=== PATIENT | female | born 2000 | race Caucasian/White ===

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

== ENCOUNTER 2019-04-07 18:38 | Emergency (ER) | payer BC, OTHER ==
--- OUTSIDE RECORDS SUMMARY | 2019-04-07 18:49 | XMS REPORT | Continuity of Care Document ---
:2000 External Reference #:[id number] Author Name Xiomara Calderon MD Address [address] [place] [address] Care Team Providers Name Role Phone Xiomara Calderon MD - Pediatrics Care Team Information Certified Surgical Tech/First Assistant [phone] Problems Description No Active Problems Social History Type Date Description Comments Sex Unknown Tobacco Use Start: Unknown Patient has never smoked Tobacco Use Start: Unknown No Exposure To Secondhand Smoke Smoking Status Reviewed: 03/07/19 No Exposure To Secondhand Smoke Allergies, Adverse Reactions, Alerts Description No Known Drug Allergies Medications Description No Active Medications Medications Administered in Office Medication SIG Qnty Indications Ordering Provider Date Immunization Administration Minoo Holt M.D. 12/30/2017 Single Or Combination Injection Immunization Administration Minoo Holt M.D. 12/10/2017 Single Or Combination Injection Immunization Administration Minoo Holt M.D. 11/12/2016 Single Or Combination Injection Immunization Adminstration 2+ Nursing 10/28/2016 Single Or Combination Injection Immunization Administration Nursing 10/28/2016 Single Or Combination Injection Immunization Administration Minoo Holt M.D. 09/26/2014 Single Or Combination Injection Immunizations CPT Code Status Date Vaccine Lot # [id number] Given 12/30/2017 Meningococcal B Vaccine [id number] 13104 Given 12/10/2017 Flu Quadrivalent [id number] 22954 Given 11/12/2016 Meningococcal B Vaccine [id number] 86023 Given 10/28/2016 Meningococcal Conjugate Vaccine (Menveo) [id number] 25228 Given 10/28/2016 Flu Quadrivalent [id number] 13849 Given 09/26/2014 Meningococcal Vaccine (Any Groups) For [id number] Subcutaneous Use 43034 Given 03/30/2013 Influenza Virus Vaccine, Split Virus, 6-35 Months Age Intramuscul 53776 Given 01/30/2012 Influenza Virus Vaccine, Split Virus, 6-35 Months Age Intramuscul 84001 Given 08/27/2011 Varicella (Chicken Pox) Vaccine 37141 Given 01/27/2011 Gardasil 53431 Given 09/24/2010 Gardasil 37125 Given 07/22/2010 Gardasil 31485 Given 07/22/2010 Tdap 77711 Given 12/14/2009 Influenza Virus Vaccine Intranasal 48947 Given 11/02/2008 Influenza Virus Vaccine, Split Virus, 6-35 Months Age Intramuscul 37238 Given 06/15/2008 Hepatitis A Pediatric 77082 Given 12/21/2007 Influenza Virus Vaccine, Split Virus, 6-35 Months Age Intramuscul 51675 Given 06/03/2007 Menactra 98550 Given 06/03/2007 Hepatitis A Pediatric 32349 Given 12/24/2006 Influenza Virus Vaccine, Split Virus, 6-35 Months Age Intramuscul 37461 Given 01/14/2006 Influenza Virus Vaccine, Split Virus, 6-35 Months Age Intramuscul 75140 Given 02/13/2005 Influenza Virus Vaccine Intranasal 20527 Given 12/18/2004 Influenza Virus Vaccine Intranasal 26579 Given 04/15/2004 Hib Vaccine 14814 Given 04/15/2004 DTaP Vaccine Younger Than 7 63299 Given 04/15/2004 MMR Vaccine, Live, For Subcutaneous Use 39317 Given 04/15/2004 Polio Injectable 23417 Given 10/27/2000 DTaP Vaccine Younger Than 7 43650 Given 10/27/2000 Prevnar 13 55478 Given 09/17/2000 Varicella (Chicken Pox) Vaccine 16803 Given 09/17/2000 Hib Vaccine 48018 Given 06/04/2000 Polio Injectable 83819 Given 06/04/2000 MMR Vaccine, Live, For Subcutaneous Use 66715 Given 03/03/2000 Prevnar 13 96405 Given 1999 Hib Vaccine 56975 Given 1999 Prevnar 13 36151 Given 1999 DTaP Vaccine Younger Than 7 48347 Given 1999 Hepatitis B Vaccine Pediatric/Adolescent 95880 Given 1999 Polio Injectable 25666 Given 1999 DTaP Vaccine Younger Than 7 75096 Given 1999 Prevnar 13 33117 Given 1999 Hib Vaccine 68391 Given 1999 Polio Injectable 46380 Given 1999 DTaP Vaccine Younger Than 7 33149 Given 1999 Hib Vaccine 79692 Given 1999 Hepatitis B Vaccine Pediatric/Adolescent 43791 Given 1999 Hepatitis B Vaccine Pediatric/Adolescent Vital Signs Date Vital Result Comment 03/07/2019 8:33am Body Temperature 100.9 F Heart Rate 93 /min Respiratory Rate 12 /min BP Systolic 108 mmHg BP Diastolic 66 mmHg Weight 148.31 lb Weight 67.275 kg Height 68.75 inches 5'8.75" BMI (Body Mass Index) 22.1 kg/m2 Body Mass Index Percentile 54 % Height Percentile 96 % Weight Percentile 79th 05/31/2018 8:57am Body Temperature 98.4 F Heart Rate 84 /min Respiratory Rate 12 /min BP Systolic 116 mmHg BP Diastolic 73 mmHg Weight 160.50 lb Weight 72.803 kg Height 68.75 inches 5'8.75" BMI (Body Mass Index) 23.9 kg/m2 Body Mass Index Percentile 73 % Height Percentile 96 % Weight Percentile 89th Results Test Acquired Date Facility Test Result H/L Range Note Laboratory test 03/07/2019 [facility] .Quick neg finding [facility] [place] [address] [phone] Laboratory test 03/07/2019 [facility] .Quick Flu Positive B finding [facility] [place] [address] [phone] Procedures Date Code Description Status 03/07/2019 16510 Brief Emotional/Behav Assessment W/ Scoring Doc Per Completed Standard Inst Medical Devices Description No Information Available Encounters Type Date Location Provider Dx Diagnosis Office Visit 03/07/2019 [facility] Xiomara Calderon, Z00.00 Encntr for general 8:15a adult medical exam w/o abnormal findings J10.89 Influenza due to oth ident influenza virus w oth manifest N63.13 Unspecified lump in the right breast, lower outer quadrant Assessments Date Code Description Provider 03/07/2019 Z00.00 Encounter for general adult medical Xiomara Calderon MD examination without abnormal findings 03/07/2019 J10.89 Influenza due to other identified influenza Xiomara Calderon MD virus with other manifestations 03/07/2019 N63.13 Unspecified lump in the right breast, lower Xiomara Calderon MD outer quadrant Plan of Treatment 03/07/2019 - Xiomara Calderon MDZ00.00 Encounter for general adult medical examination without abnormal findingsFollow up:One year for routine check upJ10.89 Influenza due to other identified influenza virus with other manifestationsComments:Symptomatic care with plenty of fluids, pain relief with acetaminophen or ibuprofen, restCall for recheck if fever lasts more than 5 days , acting more ill or lethargic, new or worse symptoms develop, respiratory difficulty.N63.13 Unspecified lump in the right breast, lower outer quadrantNew Xrays:Ultrasound Breast Right, Ordered: 03/07/19 Goals 03/07/2019 - AMINA Solares00.00 Encounter for general adult medical examination without abnormal findings Nutrition - Choose a variety of healthy foods, especially with calcium and iron. Limit fast foods and foods with trans- fats or high fructose corn syrup. - Don't skip meals and always eat breakfast.Skipping meals may lead to overeating when you get really hungry. Try not to eat after 9 pm. - Drinkplenty of water - Balance the calories you eat by doing a physical activity for at least 1 hour daily. Sleep - Get at least 8 hours nightly and try to stay on a consistent schedule. Even on weekends. Hygiene - [place] your teeth at least twice a day. Remember to floss. - See your dentist at least twicea year. Every day - Be proud of your efforts and accomplishments. Healthy Choices - Most smokers started smoking in their teens. Cigarette smoking is an addiction that leads to cancer, heart disease and chronic illness. If you smoke set a quit date and stop. Ask us if you need help quitting. - Drinking is a huge problem on college campuses, especially binge drinking (5 or more drinks consumed in ashort time.) Binge drinking can lead to disinhibition, poor judgement, sexual aggressiveness, unwanted and/or unsafe sex. This in turn may lead to STI's and unplanned . Increasingly, it can lead to legal action as well. If you use drugs or alcohol, especially if you feel out of control, talk to us about it. We can help you with quitting or cutting down. - Try to find ways to have fun thatdo not involve alcohol or drugs. - Make healthy decisions about your sexual behavior. If you choose to be sexually active, always practice safe sex. Always use a condom to prevent STI's. Ask us about control and emergency contraceptives. - Sex should ALWAYS be consensual and wanted. No one should ever feel forced or coerced. - Continue to explore your interests through activities at school, work and in the community. Stay Safe - Do not drink and drive or ride in a vehicle with someone who has been using drugs or alcohol. - If you feel unsafe driving or riding with someone, call someone you trust to drive you. If this is a parent, contract with them to provide this without fear of punishment. - Always wear a seatbelt. - Night driving is very difficult for new drivers. Most accidentshappen between 9 PM and [address] if you are sleepy. This can be as dangerous as driving drunk. - Follow the posted speed limit. The faster you go the less control you have over your car. More than a third of teen driving deaths involve speeding. - Avoid distractions like texting or talking onyour cell phone. This can make it much more likely that you will have an accident. Keep both hands on the steering wheel. Eating, changing a playlist or CD, or putting on makeup are other things that you shouldn't do while driving. Taking a minute to well puller when you need to do these things could save your life and the lives of others. - Keep control of your emotions when you are driving. If you get upset or angry when driving, well puller to the side of the road until you feel calmer. - Never tolerate physical harm of yourself or others at home or at school. - Resolve conflict nonviolently - Remember that healthy relationships are built on mutual respect and regard. Physical Safety - Avoid sunburn by using sunscreen whenever you are outdoors in the daytime. Choose a sunscreen with a sun protection factor (SPF) of 15 or higher. It should protect against UVA and UVB rays. Don't use sunlamps or tanning booths. - Wear a helmet or protective gear and follow safety rules when you play sports or do high-risk activities, such as rock climbing, skiing, cycling, and snowboarding. Never bike, ski, rollerblade, or skateboard out of control. Stay within your comfort level. Don't take unnecessary risks. -Wear eye protection if you are around dust, flying objects, intense light, or chemicals that could get into your eye. Wear safety gear if you play paintball, racquetball, lacrosse, hockey, or fast-pitch softball. - Use ear protectors when you are in a loud environment. Noise levels at concerts, where music is often louder than 120 decibels, can damage your ears in 10 minutes. [place] and stadium sporting events and car racing can be just as loud. Your Feelings - Figure out healthy ways to deal with stress. -Try your best to solve problems and make decisions on your own. - Most people have daily ups and owns. But if you are feeling sad, depressed, nervous, irritable, hopeless, or angry, talk with us,or another health professional. - We understand that sexuality is an important part of your development. Developing a sexual identity can be confusing. If you have any concerns, ask. School and Friends - Take responsibility for being organized enough to succeed at work or school. - Consider volunteering - Explore new interests - As you get older, making and keeping friends is important. You may find that you drift away from old friends - that's normal. - Evaluate your friendships and keep those that are healthy - It is still important to stay connected to your family. Immunizations -Immunizations protect you against several serious, life-threatening diseases. You should get a flu shot every year and a tetanus booster every ten years. If you travel overseas you may need additional immunizations as well as screening for tuberculosis on your return. Functional Status Description No Information Available Mental Status Description No Information Available Referrals Description No Information Available
[2019-04-07 20:56] LABS: ABS Eosinophils 0.1 10^3/ul (0-0.6); ABS Lymphocytes 3.1 10^3/ul (1.0-4.8); ABS Monocytes 0.7 10^3/ul (0-0.8); ABS Neutrophils 5.8 10^3/ul (1.5-7.7); Eosinophil % 0.7 %; Hematocrit 40 % (35-47); Hemoglobin 13.5 g/dL (12.0-16.0); Mean Corpuscular HGB Conc 34 g/dL (31-36); Mean Corpuscular Hemoglobin 30 pg (27-31); Mean Corpuscular Volume 89 fL (80-97); Platelet Count 205 10^3/uL (150-450); Red Blood Count 4.45 10^6 /uL (3.70-4.87); Red Cell Distribution Width 13 % (10-15); White Blood Count 9.7 10^3/uL (3.5-10.8)
[2019-04-07 21:18] LABS: Albumin/Globulin Ratio 1.7 (1-3); BUN/Creatinine Ratio 19.1 (8-20); Calcium 9.7 mg/dL (8.6-10.3); EGFR African American 134.9 (>60); EGFR Non-African American 111.5 (>60); Globulin 2.9 g/dL (2-4); Potassium 3.7 mmol/L (3.5-5.0); Total Bilirubin 0.4 mg/dL (0.2-1.0); Total Protein 7.9 g/dL (6.4-8.9)
[2019-04-07 22:24] LABS: Urine Appearance Cloudy; Urine Bacteria Absent (Absent); Urine Bilirubin Negative (Negative); Urine Blood 3+ (Negative); Urine Color Amber; Urine Glucose Negative (Negative); Urine Ketones Trace (Negative); Urine Nitrite Negative (Negative); Urine Protein 2+(100 mg/dL) (Negative); Urine Red Blood Cell 3+(>10/hpf) (Absent); Urine Specific Gravity 1.017 (1.010-1.030); Urine Squamous Epithelial Cell Present (Absent); Urine Urobilinogen Negative (Negative); Urine White Blood Cell Absent (Absent)
--- NOTE | 2019-04-07 23:51 | ED ---
Complex/Multi-Sys Presentation - HPI Summary HPI Summary: Patient is a 18 y/o F presenting to [facility] with complaints of hematuria and elevated BP. Hematuria onset in the afternoon of 04/07/19. The patient was [place] [facility], it is reported bloodwork was done and there were concerns with regards to the patient's kidney function and elevated BP. The patient was sent to ED for further evaluation. Dysuria, fever, N/V are denied. Patient has Hx of UTI. No other PMHx noted. NKDA, no daily medications reported. LNMP was two weeks ago. PSHx of appendectomy and knee surgery to correct leg length difference. Rare alcohol usage, no tobacco or substance usage noted. FMHx of HTN, cardiac disease, and CA reported. Home medications and allergies are reviewed. Parents are present with patient. - History Of Current Complaint Chief Complaint: EDGeneral Time Seen by Provider: 04/07/19 23:21 Hx Obtained From: Patient Timing: Intermittent, Lasting: Severity Currently: None Associated Signs And Symptoms: Positive: Other - positive - elevated BP and hematuria. Negative: Nausea, Vomiting, Dysuria, Fever - Allergies/Home Medications Allergies/Adverse Reactions: Allergies Allergy/AdvReac Type Severity Reaction Status Date / Time No Known Allergies Allergy Unverified 04/07/19 18:42 Home Medications: Home Medications Gummies Girls' Multivitamins 1 tab PO DAILY 12/17/18 [History Confirmed 12/17/18 ] Oxycodone HCl/Acetaminophen [Percocet 5-325 mg Tablet] 1 each PO Q4HR PRN #12 tablet MDD 6 12/18/18 [Rx] PMH/Surg Hx/FS Hx/Imm Hx Endocrine/Hematology History: Denies: Hx Anticoagulant Therapy Cardiovascular History: Denies: Hx Pacemaker/ICD Respiratory History: Denies: Hx Asthma History: Denies: Hx Dialysis Musculoskeletal History: Reports: Hx Orthopedic Injury - knee sx Sensory History: Denies: Hx Contacts or Glasses, Hx Eye Prosthesis, Hx Legally Blind, Hx Deafness, Hx Hearing Aid Opthamlomology History: Denies: Hx Contacts or Glasses, Hx Eye Prosthesis, Hx Legally Blind Infectious Disease History: No Infectious Disease History: Denies: Traveled Outside the [place] in Last 30 Days - Family History Known Family History: Positive: Cardiac Disease, Hypertension, Other - CA - Social History Alcohol Use: Rare Substance Use Type: Reports: None Smoking Status (MU): Never Smoked Tobacco - Additional Comments History Additional Comments: PMHx of UTI PSHx of knee surgery FMHx of cardiac disease, HTN, CA SHx of rare alcohol usage Review of Systems - ROS Summary Review of Systems Summary: Home Medications Medication Instructions Recorded Confirmed Type Gummies Girls' Multivitamins 1 tab PO DAILY 12/17/18 12/17/18 History Oxycodone HCl/Acetaminophen 1 each PO Q4HR PRN #12 tablet MDD 6 12/18/18 Rx [Percocet 5-325 mg Tablet] Negative: Fever Cardiovascular: Other - positive - elevated BP Negative: Vomiting, Nausea Positive: hematuria. Negative: dysuria All Other Systems Reviewed And Are Negative: Yes Physical Exam - Summary Physical Exam Summary: General: Well-developed, Well-nourished female. No acute distress. HEENT: Normocephalic, Atraumatic. Eyes: Conjuctiva normal, PERRL. Oropharynx: Clear, mucous membranes moist, (-) exudates. Neck: Soft, FROM, (-) lymphadenopathy, (-) thyromegaly, (-) JVD. Cardiovascular: Normal sinus rhythm, (-) murmur. Lungs: Clear to auscultation bilaterally (-) wheezes, (-) rales, (-) rhonchi. Abdomen: Soft, non-tender, non-distended, (-) organomegaly, normal bowel sounds. Back: (-) CVA tenderness Extremities: No edema. Skin: Warm, dry, (-) rash. Neuro: Alert and oriented x3, moves all extremities equally. No ataxia. No gait disturbance. No sensory deficit. Normal strength, normal sensation. Psychiatric: Mood normal, affect normal. Triage Information Reviewed: Yes Vital Signs On Initial Exam: Initial Vitals Temp Pulse Resp BP Pulse Ox 98.3 F 80 16 130/91 99 04/07/19 18:40 04/07/19 18:40 04/07/19 18:40 04/07/19 18:40 04/07/19 18:40 Vital Signs Reviewed: Yes Procedures - Sedation Patient Received Moderate/Deep Sedation with Procedure: No Diagnostics - Vital Signs Vital Signs Temp Pulse Resp BP Pulse Ox 04/07/19 23:30 84 140/81 100 04/07/19 23:29 76 100 04/07/19 23:28 68 96 04/07/19 21:36 98.9 F 79 16 133/87 100 04/07/19 18:40 98.3 F 80 16 130/91 99 - Laboratory Lab Results: Lab Results 04/07/19 04/07/19 04/07/19 Range/Units 20:47 20:47 21:57 WBC 9.7 (3.5-10.8) 10^3/uL RBC 4.45 (3.70-4.87) 10^6 /uL Hgb 13.5 (12.0-16.0) g/dL Hct 40 (35-47) % MCV 89 (80-97) fL MCH 30 (27-31) pg MCHC 34 (31-36) g/dL RDW 13 (10-15) % Plt Count 205 (150-450) 10^3/uL MPV 8.0 (7.4-10.4) fL Neut % (Auto) 59.8 % Lymph % (Auto) 32.0 % [place] % (Auto) 7.3 % Eos % (Auto) 0.7 % Baso % (Auto) 0.2 % Absolute Neuts (auto) 5.8 (1.5-7.7) 10^3/ul Absolute Lymphs (auto) 3.1 (1.0-4.8) 10^3/ul Absolute Monos (auto) 0.7 (0-0.8) 10^3/ul Absolute Eos (auto) 0.1 (0-0.6) 10^3/ul Absolute Basos (auto) 0.0 (0-0.2) 10^3/ul Absolute Nucleated RBC 0.0 10^3/ul Nucleated RBC % 0.0 Sodium 138 (135-145) mmol/L Potassium 3.7 (3.5-5.0) mmol/L Chloride 106 (101-111) mmol/L Carbon Dioxide 25 (22-32) mmol/L Anion Gap 7 (2-11) mmol/L BUN 13 (6-24) mg/dL Creatinine 0.68 (0.51-0.95) mg/dL Est GFR ( Amer) 134.9 (>60) Est GFR (Non-Af Amer) 111.5 (>60) BUN/Creatinine Ratio 19.1 (8-20) Glucose 85 (70-100) mg/dL Calcium 9.7 (8.6-10.3) mg/dL Total Bilirubin 0.40 (0.2-1.0) mg/dL AST 22 (13-39) U/L ALT 15 (7-52) U/L Alkaline Phosphatase 110 H (34-104) U/L Total Creatine Kinase 98 (10-223) U/L Total Protein 7.9 (6.4-8.9) g/dL Albumin 5.0 (3.2-5.2) g/dL Globulin 2.9 (2-4) g/dL Albumin/Globulin Ratio 1.7 (1-3) Urine Color Mitra Urine Appearance Cloudy Urine pH 5.0 (5-9) Ur Specific [place] 1.017 (1.010-1.030) Urine Protein 2+(100 mg/dl) A (Negative) Urine Ketones Trace A (Negative) Urine Blood 3+ A (Negative) Urine Nitrate Negative (Negative) Urine Bilirubin Negative (Negative) Urine Urobilinogen Negative (Negative) Ur Leukocyte Esterase Negative (Negative) Urine WBC (Auto) Absent (Absent) Urine RBC (Auto) 3+(>10/hpf) A (Absent) Ur Squamous Epith Cells Present A (Absent) Urine Bacteria Absent (Absent) Urine Glucose Negative (Negative) Result Diagrams: 04/07/19 20:47 04/07/19 20:47 Lab Statement: Any lab studies that have been ordered have been reviewed, and results considered in the medical decision making process. - Ultrasound RENAL US Ultrasound Interpretation Completed By: Radiologist Summary of Ultrasound Findings: IMPRESSION: 1. No hydronephrosis or visible calculi. 2. As seen on the prior CT, there is a mass lesions superior to the right. kidney which on the current ultrasound measures 6.1 x 4.9 x 5.1 cm and. previously measured 4.4 x 5.8 [address], this mass is predominantly. hypoechoic with punctate regions which are echogenic within the mass and no. obvious Doppler flow within the mass which is likely associated with the right. adrenal gland. In patient with no cancer history, consider resection for. adrenal mass greater than 4 cm. In patient with cancer history, consider biopsy. or PET-CT. (Alex Stevenson, ACR White Paper, 2017). THIS REPORT WAS REVIEWED BY ED PHYSICIAN. Complex Multi-Symp Course/Dx Course Of Treatment: 18-year-old female presents for evaluation of hypertension. patient had hematuria today. Went to [facility] and was found to have high blood pressure. no urinary tract infection. Was referred here for workup. Patient deniesany abdominal pain. No fevers chills. No nausea vomiting. No dysuria. No known trauma. patient has no significant findings on physical exam. Laboratories demonstrate no significant abnormality except red blood cells in the urine. abdominal ultrasound demonstrates no obvious kidney stone or kidney problems. It does show persistent right adrenal mass. Apparently this was noted on CAT scan done in December when patient was found to have appendicitis. Parents were unaware of this result. This was discussed at length. I explained to patient and parents that the next step would be a dedicated CT of her adrenal gland and mass. They declined my offer of doing a CAT scan at this time. They state they will follow up with PCP and have a scheduled as an outpatient. Patient's blood pressure is normotensive at this time. Advised plenty of fluids. Follow-up with PCP regarding elevated blood pressure and adrenal mass. Follow-up with urology guarding hematuria. Return sooner for any worsening symptoms. - Diagnoses Provider Diagnoses: Hematuria, Elevated BP without diagnosis of hypertension, Right adrenal mass Discharge ED - Sign-Out/Discharge Documenting (check all that apply): Patient Departure - DISCHARGE - Discharge Plan Condition: Stable Disposition: HOME Patient Education Materials: Hematuria (ED) Referrals: Minoo Holt MD [Primary Care Provider] - 3 Days Robert Ham MD [Medical Doctor] - 3 Days Additional Instructions: PLEASE FOLLOW-UP WITH YOUR PRIMARY CARE PHYSICIAN WITHIN THREE DAYS FOR FURTHER IMAGING OF YOUR ADRENAL MASS. PLEASE RETURN TO ED FOR ANY NEW OR CONCERNING SYMPTOMS. DRINK PLENTY OF FLUIDS. - Billing Disposition and Condition Condition: STABLE Disposition: Home - Attestation Statements Document Initiated by Isaccibroger: Yes Documenting Scribe: CHUN AVILA Provider For Whom Niecy is Documenting (Include Credential): KARLI LONDONO MD Scribe Attestation: CHUN Burr, scribed for KARLI LONDONO MD on 04/08/19 at 2322. Scribe Documentation Reviewed: Yes Provider Attestation: The documentation as recorded by the CHUN fleming accurately reflects the service I personally performed and the decisions made by me, KARLI LONDONO MD Status of Scribe Document: Viewed
[2019-04-08 01:42] VITALS: BP 121/75
== END 2019-04-08 01:43 | disposition home or self-care (01) ==
LOC: ED 18:38
DX: R31.9 Hematuria, unspecified (principal); R03.0 Elevated blood-pressure reading, without diagnosis of hypertension; E27.9 Disorder of adrenal gland, unspecified
CPT/HCPCS: 36415; 76775; 80053; 81003; 81015; 82550; 85025; 99283